=== PATIENT | male | born 2000 | race Caucasian/White ===

== ENCOUNTER 2024-05-03 14:08 | Emergency (ER) | payer BC, SELFPAY ==
[2024-05-03 14:15] VITALS: BP 154/107
--- NOTE | 2024-05-03 14:19 | ED.GENMED ---
History of Present Illness
<Ivania Acosta PA-C - Last Filed: 05/03/24 18:23>
General
Chief Complaint: Allergic Reaction
Source: patient
Exam Limitations: none
Time Seen by Provider: 05/03/24 14:16
Nursing documentation reviewed up to this point in time: agreed with
History of Present Illness
History of Present Illness:
23-year-old male with no past medical history presenting emergency department today with concerns of allergic reaction to peanuts. 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 Patient
states that he ate a protein bar. Patient states that after eating, he realized that it had peanuts in it. Patient started to have a sensation of his throat closing, and developed left upper eyelid swelling and a body rash. Patient does have epi
pen at home but did not use it because he does have a fear of needles. He had his friend drive him to the emergency department today. Patient also notes some mild chest discomfort, he did have a lot of wheezing at home but states here it has
resolved. Patient denies any abdominal pain, nausea, vomiting. Patient denies any fevers or chills.
Review of Systems
<Ivania Acosta PA-C - Last Filed: 05/03/24 18:23>
Review of Systems
All Other Systems: ROS reviewed and negative except as documented in HPI and ROS
Phy Exam
<Ivania Acosta PA-C - Last Filed: 05/03/24 18:23>
Physical Exam
Physical Exam:
General: Patient is well appearing and in no respiratory distress
Skin: Warm and dry, there is scattered urticaria on the bilateral upper extremities, chest, abdomen, back.
Head: Normocephalic, atraumatic
Eyes: Sclera non-icteric. EOMs intact. PERRLA. Left upper palpebra swelling.
Cardiac: Patient tachycardic but regular rhythm, no murmurs
Peripheral Vascular: No lower extremity swelling or edema
Pulm: Normal respiratory effort, scattered wheezing heard on exam. No stridor.
Abdomen: No abdominal tenderness to palpation.
Neuro: CN II-XII intact, no focal neurologic deficits.
Psychiatric: Appropriate mood and affect.
Course
<Ivania Acosta PA-C - Last Filed: 05/03/24 18:23>
Orders/Labs/Results
Orders:
Orders
05/03/24 14:15
EPINEPHrine PF [Adrenalin] 1 mg .ROUTE .STK-MED ONE
05/03/24 14:17
Albuterol Nebs [Ventolin Nebules] 2.5 mg .ROUTE .STK-MED ONE
Dexamethasone Pf [Decadron] 10 mg .ROUTE .STK-MED ONE
Diphenhydramine [Benadryl] 50 mg .ROUTE .STK-MED ONE
Famotidine [Pepcid] 20 mg .ROUTE .STK-MED ONE
05/03/24 14:18
Dexamethasone Sod Phosphate [Decadron] 10 mg IV NOW STA
Diphenhydramine [Benadryl] 25 mg IV NOW STA
Famotidine [Pepcid] 20 mg IV NOW STA
05/03/24 14:19
EPINEPHrine PF [Adrenalin] 0.3 mg IM NOW STA
05/03/24 14:35
Albuterol Nebs [Ventolin Nebules] 2.5 mg INH R NOW STA
Vital Signs
Initial and Last Documented VS:
Initial Vital Signs
Temp Pulse Resp Pulse Ox
98.2 F 150 16 94
05/03/24 14:10 05/03/24 14:10 05/03/24 14:10 05/03/24 14:10
Last Documented Vital Signs
Temp Pulse Resp BP Pulse Ox
98.8 F 88 12 119/65 99
05/03/24 15:25 05/03/24 15:25 05/03/24 15:25 05/03/24 15:25 05/03/24 15:25
<Espinoza Becker DO - Last Filed: 05/03/24 14:53>
Orders/Labs/Results
Orders:
Orders
05/03/24 14:15
EPINEPHrine PF [Adrenalin] 1 mg .ROUTE .STK-MED ONE
05/03/24 14:17
Albuterol Nebs [Ventolin Nebules] 2.5 mg .ROUTE .STK-MED ONE
Dexamethasone Pf [Decadron] 10 mg .ROUTE .STK-MED ONE
Diphenhydramine [Benadryl] 50 mg .ROUTE .STK-MED ONE
Famotidine [Pepcid] 20 mg .ROUTE .STK-MED ONE
05/03/24 14:18
Dexamethasone Sod Phosphate [Decadron] 10 mg IV NOW STA
Diphenhydramine [Benadryl] 25 mg IV NOW STA
Famotidine [Pepcid] 20 mg IV NOW STA
05/03/24 14:19
EPINEPHrine PF [Adrenalin] 0.3 mg IM NOW STA
05/03/24 14:35
Albuterol Nebs [Ventolin Nebules] 2.5 mg INH R NOW STA
Vital Signs
Initial and Last Documented VS:
Initial Vital Signs
Temp Pulse Resp Pulse Ox
98.2 F 150 16 94
05/03/24 14:10 05/03/24 14:10 05/03/24 14:10 05/03/24 14:10
Last Documented Vital Signs
Temp Pulse Resp BP Pulse Ox
98.8 F 88 12 119/65 99
05/03/24 15:25 05/03/24 15:25 05/03/24 15:25 05/03/24 15:25 05/03/24 15:25
<Ivania Acosta PA-C - Last Filed: 05/03/24 18:23>
MDM/Problems Addressed
Differential Diagnosis Includes:
ddx include anaphylaxis, contact dermatitis, cellulitis, drug reaction
MDM/Problems Addressed:
Allergic reaction:
23-year-old male with no past medical history presenting emergency department today with concerns of allergic reaction to peanuts. 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 Patient
states that he ate a protein bar. Patient states that after eating, he realized that it had peanuts in it. Patient started to develop a sensation of his throat closing and lots of wheezing. Patient also developed a rash. Patient has a fear of
needles and did not want to give himself an EpiPen to be reported to the emergency department. Here in the ER, he had left upper eyelid swelling, urticaria across his body, and scattered wheezing heard on exam. He was given albuterol nebulized
treatment, IM epinephrine, Decadron, famotidine, Benadryl. Patient's symptoms resolved, his lungs are now clear. Discussed observation in ER for a few hours to monitor for recurrence of symptoms. Patient reports that he feels good and would like
to go home because he cannot miss work tonight. We discussed patient to return to the ER immediately should he develop any recurrence of his symptoms. Patient states that he has an EpiPen at home that is not . I sent prednisone to his
pharmacy to take for a few days. Patient stable for discharge
Chronic conditions affecting care:
n/a
Acute Exacerbation and/or Progression of Chronic Illness:
n/a
<Ivania Acosta PA-C - Last Filed: 05/03/24 18:23>
*Pulse Oximetry
Patient hypoxic: no
*Critical Care Note
Total Time (30-74mins, 75-104mins- exclusive of procedures): Not Applicable
Data Reviewed
Review of Other/Old Records Reveals: Records (no previous ER records to review) and Discharge Summary (no discharge summaries in [facility] to review)
Source: patient and records
<Ivania Acosta PA-C - Last Filed: 05/03/24 18:23>
Patient Management
Escalation/DeEscalation of care consider admission/obs:
Admit not indicated, patient stable for discharge
<Espinoza Becker DO - Last Filed: 05/03/24 14:53>
Update Note
Update Note:
2:50 PM patient very eager to leave. All symptoms have almost completely resolved. Patient states he wants go back to work. I did discuss that he usually tend to monitor significant allergic reactions for a few hours. Patient understands the
risks of leaving early and states he will call 911 immediately if he develops any worsening symptoms or any return of symptoms.
ED Attending Note
<Ivania Acosta PA-C - Last Filed: 05/03/24 18:23>
-
Portions of this chart may have been created with voice recognition software.� Occasional wrong word or��sound alike� substitutions may have occurred due to the inherent limitations of voice recognition software.
<Espinoza Becker DO - Last Filed: 05/03/24 14:53>
ED Attending Note
Patient seen and examined by attending physician: Yes
I performed the substantive portion of visit, reviewed & personally made and approve the management plan that is documented in note by myself or GOPI.: Yes
ED Attending Note:
I have seen and evaluated the patient with a [id number] encounter. I have spoken to the advance practicer provider and involved in the medical history, the physical exam, medical decision making.
Evaluation and management service: agree unless noted differently below.
Results interpretation: agree unless noted differently below.
Focused HPI: 23-year-old male presenting with allergic reaction to peanuts. He mistakenly ingested peanut containing food. Patient was met by myself and the PA immediately on arrival
Physical exam: Swelling noted to face. Posterior pharynx clear. No stridor. Mild wheezing
Medical Decision Making: Will treat as anaphylaxis. Patient given epinephrine, IV Decadron, IV Pepcid and IV Benadryl. Will continue to monitor. Patient is protecting airway
Discharge Plan
Departure
Patient Disposition: Home (Routine Discharge)
Date of Disposition: 05/03/24
Time of Disposition: 14:52
Patient with high blood pressure during this ER visit?: Yes
Condition: Good
Discharge Problem:
Allergic reaction
Instructions: Allergic Reaction ED, BLOOD PRESSURE
Prescriptions:
New
prednisone 20 mg tablet
40 mg PO DAILY 4 Days Qty: 8 0RF
Activity Restrictions/Additional Instructions:
Starting tomorrow, you can take 40 mg of prednisone once daily for 4 days.
Please follow-up with your primary care provider.
PLEASE RETURN TO THE EMERGENCY DEPARTMENT IMMEDIATELY SHOULD YOU HAVE A RECURRENCE OF YOUR SYMPTOMS.
Interventions
Interventions:
*Risk Screen - Suicide Last Done: 05/03/24 14:27
*General Assessment Last Done: 05/03/24 14:27
*Neglect/Abuse Screening Last Done: 05/03/24 14:27
ED- Fall Risk Assessment Last Done: 05/03/24 14:29
*ED COVID-19 Vaccine History Last Done: 05/03/24 14:27
*Nursing Disposition Last Done: 05/03/24 15:25
ED- Cardiac Assessment Last Done: 05/03/24 14:29
ED- Pulmonary Assessment Last Done: 05/03/24 14:29
ED-Skin Assessment Last Done: 05/03/24 14:23
Discharge Date and Time
Discharge Date/Time: 05/03/24 15:27
Print Language: BRITISH
[2024-05-03] MEDS: ADRENALIN 0.3 MG IM (14:20)
[2024-05-03] MEDS: DECADRON 10 MG IV (14:22)
[2024-05-03] MEDS: BENADRYL 25 MG IV (14:22)
[2024-05-03 14:23] VITALS: BMI 20.3
[2024-05-03] MEDS: PEPCID 20 MG IV (14:23)
[2024-05-03 14:26] VITALS: BP 125/72
[2024-05-03 14:28] VITALS: BP 125/72
[2024-05-03] MEDS: VENTOLIN NEBULES 2.5 MG INH (14:36)
[2024-05-03 15:00] VITALS: BP 119/65
[2024-05-03 15:25] VITALS: BP 119/65
== END 2024-05-03 15:27 | disposition home or self-care (01) ==
LOC: EMR 14:08
PROVIDERS: EMERGENCY PHYSICIAN Student in an Organized Health Care Education/Training Program; FAMILY PHYSICIAN Family Medicine
DX: T78.1XXA Other adverse food reactions, not elsewhere classified, initial encounter (principal); R06.2 Wheezing; R22.0 Localized swelling, mass and lump, head; R07.89 Other chest pain; R03.0 Elevated blood-pressure reading, without diagnosis of hypertension; Z91.018 Allergy to other foods; Z91.010 Allergy to peanuts
CPT/HCPCS: 99284; 96374; 96375 ×2; 96372; 94640

== ENCOUNTER 2024-11-27 18:31 | Emergency (ER) | payer SELFPAY ==
[2024-11-27 18:34] VITALS: BP 140/85
--- NOTE | 2024-11-27 20:39 | ED.MUSCINJ ---
HPI-Injury
General
Chief Complaint: Fall
Source: patient
Exam Limitations: none
Time Seen by Provider: 11/27/24 20:23
Nursing documentation reviewed up to this point in time: agreed with
History of Present Illness-Injury
Is this injury a work related problem?: Yes
Is pt an associate of [facility]/[place]?: No
Initial Injury comments:
Patient states he slipped and fell at work tonight. Hit left chest on smoker handle. Has large abrasion to left lateral chest. COmplains of pain to left lat chest and left upper arm. 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
Past History
Past History
ED Past Medical History: None
ED Past Surgical History: None
Review of Systems
Review of Systems
Allergies reviewed?: Yes
All Other Systems: ROS reviewed and negative except as documented in HPI and ROS
Constitutional: Reports no symptoms
EENT: Reports no symptoms
Respiratory: Reports no symptoms
Cardiac: Reports no symptoms
ABD/GI: Reports no symptoms
Musculoskeletal: Reports joint pain (Pain to left lateral chest, left upper arm)
Skin: Reports other (abrasion to left lateral chest)
Neurological: Reports no symptoms
Psychiatric: Reports no symptoms
Musculoskeletal Injury Exam
Musculoskeletal Injury Exam
Left Lateral Chest:
Pain with Movement?: Moderate
Tender to palpation?: Moderate
Soft tissue swelling?: None
External deformity and angulation?: None
Joint effusion?: None
Contusion?: Moderate
Hematoma-local bleeding into tissue?: None
Strain- Sprain- Tear (Connective tissue injury)?: None
Crepitus with movement?: No
Joint instability?: No
Malalignment/deformity?: No
Range of motion: Limited
Distal skin color and temperature: normal-warm & good color
Capillary Refill: normal
Normal distal neurovascular exam?: Yes
Skin Exam
Abrasion
Left Lateral Chest:
Description of abrasion: deep/clean
Phy Exam
General Physical Exam
General Presentation: well appearing and mild distress
General age: appears stated age
General Skin: warm and dry
General Habitus: normal
General Mental: alert
Pulmonary Exam
Pulmonary Exam: lungs clear and no respiratory distress
Gastrointestinal Exam
Gastrointestinal Exam: normal bowel sounds, non tender and soft
Musculoskeletal Exam
Musculoskeletal Exam: full ROM and neuro vasc intact
Skin Exam
Skin Exam: normal color, warm/dry and no rash
Psychiatric Exam
Psychiatric Exam: normal mood/affect
Injury Course
Orders/Labs/Results
Orders:
Orders
11/27/24 18:33
Ribs, Left 3 View W/PA Chest CR [CR Ribs-left 3 Vw W/pa Chest] Urgent
Comment:
Reason For Exam: pain
11/27/24 18:37
Humerus, Left 2 Views [CR Humerus - Left Min 2 Views*] Urgent
Comment:
Reason For Exam: pain
*Radiology
Radiology exam reviewed: radiology read reviewed
*Pulse Oximetry
Patient hypoxic: no
*Critical Care Note
Total Time (30-74mins, 75-104mins- exclusive of procedures): Not Applicable
ED Attending Note
-
Portions of this chart may have been created with voice recognition software.� Occasional wrong word or��sound alike� substitutions may have occurred due to the inherent limitations of voice recognition software.
Discharge Plan
Departure
Patient Disposition: Home (Routine Discharge)
Date of Disposition: 11/27/24
Time of Disposition: 20:36
Patient with high blood pressure during this ER visit?: No
Condition: Good
Covid-19: Not Applicable
Discharge Problem:
Chest wall contusion, Abrasion of chest wall
Instructions: Wound Care (DC), Contusion (DC), Using Cold for Pain
Prescriptions:
No Action
prednisone 20 mg tablet
40 mg PO DAILY 4 Days Qty: 8 0RF
Referrals:
Douglas Lundberg DO [Family Provider] -
Stand Alone Forms: Return to Work
Activity Restrictions/Additional Instructions:
Follow up with your workman's comp provider in the AM
Interventions
Interventions:
*Risk Screen - Suicide Last Done: 11/27/24 18:34
*General Assessment Last Done: 11/27/24 18:34
*Neglect/Abuse Screening Last Done: 11/27/24 18:34
ED- Fall Risk Assessment Last Done: 11/27/24 21:12
*ED COVID-19 Vaccine History Last Done: 11/27/24 18:34
*Nursing Disposition Last Done: 11/27/24 21:12
ED-Musculoskeletal Assessment Last Done: 11/27/24 21:07
ED- Neurological Assessment Last Done: 11/27/24 21:07
ED-Skin Assessment Last Done: 11/27/24 21:07
Discharge Date and Time
Discharge Date/Time: 11/27/24 21:12
Print Language: AFGHAN
== END 2024-11-27 21:12 | disposition home or self-care (01) ==
LOC: EMR 18:31
PROVIDERS: EMERGENCY PHYSICIAN Emergency Medicine; FAMILY PHYSICIAN Family Medicine
DX: S20.212A Contusion of left front wall of thorax, initial encounter (principal); S20.312A Abrasion of left front wall of thorax, initial encounter; S49.92XA Unspecified injury of left shoulder and upper arm, initial encounter; W01.198A Fall on same level from slipping, tripping and stumbling with subsequent striking against other object, initial encounter; Y99.0 Civilian activity done for income or pay
CPT/HCPCS: 99284; 71101; 73060